=== PATIENT | male | born 1975 | race Caucasian/White ===

== ENCOUNTER 2022-01-20 19:02 | Emergency (ER) | payer MEDICAID ==
[~2022-01-20] VITALS: Ht 180.3 cm; Wt 108.9 kg
[2022-01-20 19:07] VITALS: BP_SYST 139
--- NOTE | 2022-01-20 19:07 | NUR ---
Patient to ER bed H1 to gown for evaluation. Side rails up.
--- NOTE | 2022-01-20 19:10 | NUR ---
PT BIB [employer] FOR MEDICAL CLEARANCE. PT REPORTS TAKING SUBOXONE 16MG DAILY X 1 YEAR AND NEEDS A DOSE TODAY. PT IS AMBULATORY, [id number], VSS. NO OTHER COMPLAINTS UPON ARRIVAL
--- NOTE | 2022-01-20 19:17 | NUR ---
REPORT GIVEN TO OLGA COREA FOR CONTINUING CARE
[2022-01-20 21:27] VITALS: BP_SYST 120
== END 2022-01-20 21:27 ==
LOC: SED 19:02
DX: Z02.89 Encounter for other administrative examinations (principal)
CPT/HCPCS: 99283